=== PATIENT | female | born 1935 | race Caucasian/White ===

== ENCOUNTER → 2017-05-23 | Outpatient (CLI) | payer MEDICARE, SELFPAY ==
[~2017-05-23] MED LIST: ALBU90OI6 INH; ASPI81CH PO; ASPI81EC; ASPI81EC PO; CALCAVITD PO; CARV6.25 PO; CEPH500; CHOL10002 PO; CIME300; CORAL CALCIUM1 GM PO; ERGO400; ERGO50000 PO; FISH1000; GARLIC; LETR2.5 PO; LORA1 PO; LOSA50 PO; LOSARTAN POTAS100 MG PO; MAXIDE; MULTI-VITAMIN1 EACH PO; MULVITA PO; MULVITMINF; Norco 5-325 Ta1 EACH PO; OMEP20ER PO; OMEPRAZOLE MAGN20 MG PO; OSCAL; POTCHL20ER PO; Prilosec Otc20 MG; Prilosec Otc20 MG PO; RXLORA1 PO; STOOL SOFTENER; TOCO400; TRAZ50 PO; TRIHYD253B PO; UBID100 PO; VENL150ER PO; VENLAFAXINE HCL75 MG PO; Valium2 MG PO; Zofran8 MG PO; [UNRECOGNIZED DRUG - REMARK]
[2017-05-23 12:49] LABS: Source, Urine Clean Catch
[2017-05-23 16:46] LABS: Bilirubin, Urine Neg (Neg); Blood, Urine Neg (Neg); Glucose Qualitative, Urine Neg (Neg); Ketones, Urine Neg (Neg); Leukocyte Esterase, Urine Neg (Neg); Nitrite, Urine Neg (Neg); Protein, Urine Neg (Neg); Specific Gravity, Urine 1.005 (1.003-1.022); Urobilinogen, Urine NORM (Normal)
[2017-05-23 17:04] LABS: Appearance, Urine Clear (Clear); Color, Urine Yellow (P-Yellow)
[2017-05-26 08:35] LABS: 25-OH Vitamin D, Total 34.8 ng/mL (24.0-80.0)
== END | disposition home or self-care (01) ==
LOC: LAB 12:48
PROVIDERS: Internal Medicine
DX: E55.9 Vitamin D deficiency, unspecified (principal); R39.14 Feeling of incomplete bladder emptying
CPT/HCPCS: 36415; 81003; 82306

== ENCOUNTER 2017-06-29 10:26 | Emergency (ER) | payer MEDICARE ==
[~2017-06-29] VITALS: Ht 170.2 cm; Wt 74.8 kg
[~2017-06-29 10:26] MED LIST changes: -OMEPRAZOLE MAGN20 MG PO; -TRAZ50 PO; -Zofran8 MG PO
[2017-06-29] MEDS ORDERED: Zofran8 MG PO (10:40)
[2017-06-29] MEDS ORDERED: TRAZ50 PO (10:40)
[2017-06-29] MEDS ORDERED: OMEPRAZOLE MAGN20 MG PO (10:41)
== END 2017-06-29 12:00 | disposition home or self-care (01) ==
LOC: ER 10:26
DX: M54.31 Sciatica, right side (principal); G62.9 Polyneuropathy, unspecified; C96.9 Malignant neoplasm of lymphoid, hematopoietic and related tissue, unspecified; Z88.8 Allergy status to other drugs, medicaments and biological substances; Z88.0 Allergy status to penicillin; Z79.899 Other long term (current) drug therapy
CPT/HCPCS: 36415; 99283

== ENCOUNTER 2018-09-27 10:41 | Emergency (ER) | payer MEDICARE, SELFPAY ==
[~2018-09-27] VITALS: Ht 162.6 cm; Wt 81.2 kg
[~2018-09-27 10:41] MED LIST changes: +OMEPRAZOLE MAGN20 MG PO; +TRAZ50 PO; +Zofran8 MG PO
[2018-09-27] MEDS ORDERED: LETR2.5 PO (11:03)
[2018-09-27] MEDS ORDERED: ALPR.25 PO (11:03)
[2018-09-27] MEDS ORDERED: GABA300 PO (11:03)
[2018-09-27 11:16] LABS: BASOPHILS ABSOLUTE AUTO 0.03 K/mm3 (0.00-0.23); BASOPHILS PERCENT AUTO 0 % (0-2); EOSINOPHILS ABSOLUTE AUTO 0.04 K/mm3 (0.00-0.68); EOSINOPHILS PERCENT AUTO 1 % (0-6); Hematocrit 34.9 % (33.0-51.0); Hemoglobin 11.2 g/dL (11.5-16.0); IMMATURE GRAN ABSOLUTE AUTO 0.39 K/mm3 (0.00-0.10); IMMATURE GRAN PERCENT AUTO 5 % (0-1); LYMPHOCYTES ABSOLUTE AUTO 1.36 K/mm3 (0.84-5.20); LYMPHOCYTES PERCENT AUTO 18 % (21-46); MONOCYTES PERCENT AUTO 29 % (4-13); Mean Corpuscular HGB 29.4 pg (26.0-34.0); Mean Corpuscular HGB Conc 32.1 g/dL (31.5-36.5); Mean Corpuscular Volume 92 fL (80-100); Mean Platelet Volume 10.3 fL (9.1-12.4); NEUTROPHILS ABSOLUTE AUTO 3.68 K/mm3 (1.96-9.15); NEUTROPHILS PERCENT AUTO 48 % (41-73); Platelet Count 184 K/mm3 (150-400); RDW Coefficient Variation 17.3 % (11.7-14.2); RDW Standard Deviation 58.2 fL (35.1-46.3); Red Blood Cell Count 3.81 M/mm3 (3.80-5.20)
[2018-09-27 11:32] LABS: Alanine Aminotransfer (ALT/SGP 13 U/L (12-78); Albumin, Blood 3.3 g/dL (3.4-5.0); Albumin/Globulin Ratio 0.8 (0.8-1.8); Alk Phos 110 U/L (50-136); Anion Gap 6 mmol/L (6-16); Aspartate Aminotrans (AST/SGOT 13 U/L (12-37); Bilirubin, Total 0.4 mg/dL (0.1-1.0); Blood Urea Nitrogen 13 mg/dL (8-24); Bun/Creatinine Ratio 18.9 (12.0-20.0); CO2, Blood 23 mmol/L (21-32); Calcium, Blood 8.3 mg/dL (8.5-10.1); Chloride, Blood 112 mmol/L (98-108); Creatinine, Blood 0.69 mg/dL (0.40-1.00); Globulin, Blood 3.9 g/dL (2.2-4.0); Glomerular Filtration Rate >60 (60-); Glucose, Blood 112 mg/dL (70-99); Potassium, Blood 3.7 mmol/L (3.5-5.5); Sodium, Blood 141 mmol/L (136-145); Total Protein, Blood 7.2 g/dL (6.4-8.2); Troponin I <0.015 ng/mL (0.000-0.040)
== END 2018-09-27 12:40 | disposition home or self-care (01) ==
LOC: ER 10:41
PROVIDERS: Emergency Medicine
DX: R42 Dizziness and giddiness (principal); Z88.8 Allergy status to other drugs, medicaments and biological substances; Z88.0 Allergy status to penicillin; Z79.899 Other long term (current) drug therapy; Z85.3 Personal history of malignant neoplasm of breast; I10 Essential (primary) hypertension
CPT/HCPCS: 36415; 80053; 84484; 85025; 93005; 93010; 99284-25